=== PATIENT | female | born 1940 | race Caucasian/White ===

== ENCOUNTER → 2017-07-24 | Outpatient (REF) | LOC: ZLAB.WCH 16:02 | DX: Z01.89 Encounter for other specified special examinations (principal) ==

== ENCOUNTER → 2018-08-13 | Outpatient (REF) ==
[2018-08-13 15:02] LABS: THYROID STIMULATING HORMONE 1.47 uIU/mL (0.465-4.680)
== END ==
LOC: ZLAB.WCH 14:07
PROVIDERS: Physician Assistant
DX: Z01.89 Encounter for other specified special examinations (principal)